=== PATIENT | male | born 1965 | race Caucasian/White ===

== ENCOUNTER 2016-10-02 12:27 | Outpatient (CLI) | payer OTHER ==
[2013-12-21 14:25] VITALS: BMI 30.1
--- NOTE | 2016-10-02 13:18 | DI ---
EXAM: PA and lateral views of the chest HISTORY: Food in larynx causing asphyxiation COMPARISON: Chest x-ray 09/21/2014 FINDINGS: The cardiomediastinal silhouette is normal. The airways appear patent. There is no pneu mothorax or pleural effusion. There is no consolidation, nodule or mass. The osseous structures de monstrate mild degenerative disease. IMPRESSION: There is no acute consolidation or filling defect in the central airways.
== END 2016-10-02 12:28 | disposition home or self-care (01) ==
LOC: RAD 12:27
PROVIDERS: ATTEND Nurse Practitioner Family
DX: T17.320A Food in larynx causing asphyxiation, initial encounter (principal)

== ENCOUNTER 2016-10-07 08:42 | Outpatient (CLI) ==
[2013-12-21 14:25] VITALS: BMI 30.1
--- NOTE | 2016-10-07 10:10 | DI ---
EXAM: Single contrast esophagram. History: Food bolus in the larynx and esophagus. Technique: Patient was given oral barium and multiple spot films of the esophagus and gastroesophag eal junction were obtained in various projections. Findings: The course and caliber of the esophagus are within normal limits. No mucosal lesions or filling defects identified. No strictures. The gastroesophageal junction is normal in appearance. No hiatal hernia. No gastroesophageal reflux was observed during the course of this examination. Impression: Normal esophagram.
== END 2016-10-07 08:43 | disposition home or self-care (01) ==
LOC: RAD 08:42
PROVIDERS: ATTEND Nurse Practitioner Family
DX: T17.320A Food in larynx causing asphyxiation, initial encounter (principal)

== ENCOUNTER 2016-11-11 08:12 | Outpatient (CLI) ==
[2013-12-21 14:25] VITALS: BMI 30.1
[2016-11-12 06:21] LABS: TESTOSTERONE 439 ng/dL (348-1197)
== END 2016-11-11 08:13 | disposition home or self-care (01) ==
LOC: LAB 08:12
PROVIDERS: ATTEND Family Medicine
DX: E29.1 Testicular hypofunction (principal)
CPT/HCPCS: 36415; 84403

== ENCOUNTER 2017-01-06 10:03 | Outpatient (CLI) | payer OTHER ==
[2013-12-21 14:25] VITALS: BMI 30.1
[2017-01-06 10:26] LABS: FLU INTERNAL QC INTERNAL QC VALID; RAPID FLU A NEGATIVE (NEGATIVE); RAPID FLU B NEGATIVE (NEGATIVE)
== END 2017-01-06 10:04 | disposition home or self-care (01) ==
LOC: LAB 10:03
PROVIDERS: ATTEND Nurse Practitioner Family
DX: R05 Cough (principal); R50.9 Fever, unspecified; R52 Pain, unspecified
CPT/HCPCS: 87651; 87804; 87880

== ENCOUNTER 2018-03-20 15:25 | Outpatient (CLI) ==
[2013-12-21 14:25] VITALS: BMI 30.1
--- NOTE | 2018-03-20 16:41 | US ---
EXAM: Testicular ultrasound HISTORY: Leukemia and right testicular pain COMPARISON: None TECHNIQUE: Sonographic and Doppler evaluation of the testicles were performed. FINDINGS: The right testicle measures 4.1 x 2.2 x 3.0 cm. Right testicle demonstrates mildly hetero geneous echogenicity with normal color Doppler flow. The epididymis is unremarkable with a complex n odule measuring 1.2 x 0.8 by a 1.0 cm with an adjacent more solid appearing complex nodule measuring 0.5 x 0.6 x 0.7 cm. There is a mild varicocele. A small hydrocele is present. There is normal colo r Doppler flow without signs of torsion. The left testicle measures 3.9 x 2.4 x 2.7 cm. Testicle is mildly heterogeneous. The epididymis is no rmal in appearance. There is moderate varicocele and mild to a medium hydrocele. There is normal co lei Doppler flow without signs of torsion. IMPRESSION: 1. No evidence of torsion or acute infection with symmetric color Doppler flow in both testicles. 2. Heterogeneous appearance of the right epididymis with some complex and solid appearing nodularity . This may represent sequela of old infection or epididymitis. Short-term follow-up ultrasound is r ecommended.. 3. Medium left and small right hydroceles with mild right and moderate left varicoceles.
== END 2018-03-20 15:26 | disposition home or self-care (01) ==
LOC: RAD 15:25
PROVIDERS: ATTEND Emergency Medicine
DX: N50.811 Right testicular pain (principal)

== ENCOUNTER 2018-03-24 06:48 | Day surgery (SDC) ==
[2013-12-21 14:25] VITALS: BMI 30.1
[2018-03-24] MEDS ORDERED: LIDOCAINE 1% 20 ML MDV ID STA (07:19)
[2018-03-24] MEDS ORDERED: VERSED ONE (08:00)
[2018-03-24] MEDS ORDERED: DIPRIVAN 20 ML VIAL IVP ONE (08:00)
[2018-03-24 16:29] VITALS: BP 126/67; TEMP 98.6
--- NOTE | 2018-03-26 09:18 | OP ---
INDICATIONS FOR PROCEDURE: 52-year-old gentleman presents for endoscopy evaluation and chest pain. He was having some atypical chest pain. He takes Protonix daily. He is feeling better since starting Carafate. He has been taking it two to three times a day with relief of his symptoms. He is also scheduled for colonoscopy exam. He was diagnosed with Crohn's disease in 2006. He last had surveillance colonoscopy 2 years ago with finding of adenomatous polyps but no active Crohn's. MEDICATIONS: SEE ANESTHESIA NOTES. PROCEDURE: 1. ENDOSCOPY, ESOPHAGEAL BIOPSY, SIERRA LEONEAN DILATATION 2. COLONOSCOPY, SNARE POLYPECTOMY, BIOPSY REPORT: The risks, benefits, alternatives and limitations were discussed in detail with the patient. Informed consent was obtained. After adequate sedation was achieved, the video endoscope was introduced in the posterior pharynx and esophagus under direct vision and easily advanced down to the second portion of the duodenum. I then slowly withdrew. The duodenal mucosa appeared unremarkable as did the duodenal bulb. The antrum and body were relatively unremarkable. The scope was retroflexed to look at the cardia and fundus which was unremarkable. The scope was anteflexed and withdrawn back through the esophagus. There was a 2 cm sliding hiatal hernia. The GE junction slid from 39 to 37 cm. The GE junction itself was irregular with tongues of gastric type mucosa seen proximal for about 0.5 cm. Biopsies were obtained for histological review. Also at the GE junction there was circumferential stricturing causing mild luminal narrowing. The mid and distal esophagus also had some chronic scarring changes which looked like a ringed esophagus. I could not tell if this was old burned out eosinophilic esophagitis or old scarring from reflux disease. Biopsies were obtained 5 cm above the GE junction which at this moment was at 32 cm. I then advanced a guidewire into the gastric lumen under direct visual guidance. I then withdrew the scope. Over the guidewire I did easily advance 54 [place] dilator. The patient tolerated the procedure well with stable vital signs and pulse oximetry throughout. The patient's bed was turned. The digital rectal exam revealed good tone, no masses. The colonoscope was introduced into the rectum and was advanced under direct visual guidance to the cecum. The cecum was identified by the appendiceal orifice and IC valve. I was able to intubate the terminal ileum and examine distally 12 cm. This appeared unremarkable. I biopsied the ileum for histological review. I then withdrew the scope into the colon and slowly withdrew in a circumferential manner examining the mucosa quite carefully. I looked on the proximal and distal side of folds and flexures as best as possible. I was able to retroflex the scope in the right colon as well as left colon. The only abnormality noted was a small diminutive 4 mm polyp in the proximal ascending colon. I destroyed this using a snare. The remaining colon was unremarkable including on retroflex view of the anal canal. The prep was excellent. I did obtain surveillance biopsies from the cecum, transverse colon, sigmoid colon and rectum. Four quadrant biopsies were obtained from that area. Withdrawal time was 9 minutes and 43 seconds. The patient tolerated the procedure well with stable vital signs and pulse oximetry throughout. IMPRESSION: 1. Small sliding hiatal hernia. 2. Distal esophageal strictured dilated as above. 3. Regular GE junction biopsy. 4. Chronic changes in the mid distal esophagus suggesting either burned eosinophilic esophagitis or old changes from reflux disease. 5. Small diminutive colon polyp destroyed. 6. Otherwise normal colonoscopy exam without evidence of active Crohn's. RECOMMENDATIONS: 1. He currently is asymptomatic so I am going to have him continue Protonix and use Carafate as needed throughout the day which is working with him. 2. Strict reflux precautions. 3. Await esophageal biopsy results. 4. If there is evidence of Fagan's, I recommended surveillance endoscopy examination again in three years. 5. Await colon pathology results. 6. If colon pathology is unremarkable and he remains asymptomatic, I recommend a surveillance colonoscopy examination again in three years. 7. Will see him back in the office as needed and in one year for a checkup. CC: DR. SHAWNA TIRADO
== END 2018-03-24 09:25 | disposition home or self-care (01) ==
LOC: SURG 06:48
PROVIDERS: ATTEND Internal Medicine Gastroenterology
DX: K22.2 Esophageal obstruction (principal); K21.9 Gastro-esophageal reflux disease without esophagitis; K44.9 Diaphragmatic hernia without obstruction or gangrene; Z86.010 Personal history of colon polyps; R07.9 Chest pain, unspecified

== ENCOUNTER 2018-10-27 10:03 | Day surgery (SDC) | payer OTHER ==
[2013-12-21 14:25] VITALS: BMI 30.1
[2018-10-27] MEDS ORDERED: LIDOCAINE 1% 20 ML MDV ID STA (11:12)
[2018-10-27 11:24] VITALS: TEMP 98.2
[2018-10-27] MEDS ORDERED: DIPRIVAN 20 ML VIAL IVP ONE (12:00)
[2018-10-27] MEDS ORDERED: VERSED ONE (12:00)
--- NOTE | 2018-10-28 10:52 | OP ---
INDICATIONS FOR PROCEDURE: 53-year-old gentleman presents for colonoscopy exam. He has been having some right lower quadrant discomfort. He has a history of Crohn's. 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 He has a history of passing some bright red blood per rectum since he was 13 years old. MEDICATIONS: SEE ANESTHESIA NOTES. PROCEDURE: COLONOSCOPY. REPORT: The risks, benefits, alternatives and limitations were discussed in detail with the patient. Informed consent was obtained. After adequate sedation was achieved, a digital rectal exam revealed good tone, no masses. The colonoscope was introduced into the rectum and advanced under direct visual guidance to the cecum. The cecum was identified by the appendiceal orifice and IC valve. The patient tolerated the procedure well with stable vital signs and pulse oximetry throughout. IMPRESSION: 1. NORMAL COLONOSCOPY EXAM INCLUDING THE TERMINAL ILEUM. RECOMMENDATIONS: 1. High fiber diet. 2. He is going to continue with Miralax and adjust the dose as needed for his constipation. 3. Await biopsy results. 4. Will see him back in the office as needed and in one year for a checkup. 5. Repeat colonoscopy examination again in three years. cc: Dr. Be TIRADO
[2018-10-28 12:26] VITALS: BP 128/58
== END 2018-10-27 13:10 | disposition home or self-care (01) ==
LOC: SURG 10:03
PROVIDERS: ATTEND Internal Medicine Gastroenterology
DX: K50.00 Crohn's disease of small intestine without complications (principal); R10.31 Right lower quadrant pain; K59.00 Constipation, unspecified; K62.5 Hemorrhage of anus and rectum